=== PATIENT | male | born 1970 ===

== ENCOUNTER 2022-10-06 14:31 | Emergency (ER) | payer BC ==
[2022-10-06] MEDS ORDERED: Lidocaine 1% 10 ML MDV INJECT ONE (14:37)
[2022-10-06] MEDS ORDERED: Diphtheria,Pertussis(Acell),Tetanus Vaccine 0.5 ML Syringe IM ONE (14:41)
== END 2022-10-06 15:30 | disposition home or self-care (01) ==
LOC: JD.ED 14:31
DX: S60.451A Superficial foreign body of left index finger, initial encounter (principal); S60.453A Superficial foreign body of left middle finger, initial encounter; F17.210 Nicotine dependence, cigarettes, uncomplicated; Z23 Encounter for immunization; W45.8XXA Other foreign body or object entering through skin, initial encounter
CPT/HCPCS: 10120; 90471; 90715; 99282-25; 99283; J3490